=== PATIENT | female | born 1955 | race Caucasian/White ===

== ENCOUNTER → 2018-05-18 | Outpatient (CLI) | payer OTHER ==
[~2018-05-18] MED LIST: ASPIR 8181 MG PO; METOPROLOL SUCC50 MG PO
--- NOTE | 2018-05-21 09:27 | Diagnostic Imaging Report ---
TECHNIQUE: Magnetic resonance imaging of the LEFT SHOULDER was performed WITHOUT injected contrast. COMPARISON: None available. HISTORY: Left shoulder pain FINDINGS: MUSCLES AND TENDONS: Rotator Cuff: Tendons: Full thickness tear of the conjoined supraspinatus and infraspinatus at the humeral insertion measuring approximately 1 cm in AP dimension. No significant retraction. Muscles: No focal muscle atrophy. Biceps Tendon: The long head of the biceps tendon is intact and within the intertubercular groove. GLENOHUMERAL JOINT: Glenoid Labrum: No displaced tear. Articular Cartilage: No focal defect. AC JOINT AND ACROMION: Minimal hypertrophic degenerative changes of the acromioclavicular joint. Downsloping acromion with subacromial spurring. BONE: No acute fracture. SOFT TISSUES: Subacromial subdeltoid bursal fluid. IMPRESSION: Focal full-thickness tear of the conjoined supraspinatus and infraspinatus tendon at the humeral insertion. No atrophy. Downsloping acromion with subacromial spurring. Signed by: Dr. Carlos Davis M.D. on 05/21/2018 9:24 AM
== END ==
LOC: MRI 08:26
PROVIDERS: ATTEND Specialist
DX: M75.42 Impingement syndrome of left shoulder (principal)

== ENCOUNTER → 2018-07-19 | Day surgery (SDC) | payer OTHER ==
[2018-07-15 10:03] LABS: ANION GAP 14.4 mmol/L (8-16); BLOOD UREA NITROGEN 17 mg/dL (7-26); BUN/CREATININE RATIO 21 (6-25); CALCIUM 9.4 mg/dL (8.4-10.2); CARBON DIOXIDE 24 mmol/L (22-29); CHLORIDE 106 mmol/L (98-107); EST GLOMERULAR FILTRATION RATE > 60 ML/MIN (60-); GLUCOSE 99 mg/dL (74-118); POTASSIUM 4.4 mmol/L (3.5-5.1); SODIUM 140 mmol/L (136-145)
[~2018-07-19] MED LIST changes: +CALCIUM CARBON500 MG PO; +CEFAZOLIN SOD 1 GM/NS 50ML 50 ML IV ONE; +DEXAMETHASONE SOD PHOS INJ 4 MG/ML VIAL ONE; +EPHEDRINE SULFATE INJ 50 MG/10 ML SYR ONE; +EPINEPHRINE HCL 1:1000 1ML 1 MG/ML AMP ONE; +FENTANYL CITRATE/PF 100MCG/2 ML INJ ONE; +GLYCOPYRROLATE INJ 1MG/ 5 ML SYR ONE; +KETOROLAC TROMETHAMINE 30 MG/ML VIAL ONE; +LIDOCAINE HCL 2% LOCAL INJ 5 ML SDV VIAL INJ ONE; +METFORMIN HCL500 MG PO; +METOCLOPRAMIDE HCL 10 MG/2ML VIAL ONE; +MIDAZOLAM HCL 2 MG/2 ML VIAL ONE; +NEOSTIGMINE 5 MG/5ML SYR ONE; +ONDANSETRON HCL INJ 2MG/ML 2ML 2 MG/ML VIAL ONE; +PHENYLEPHRINE HCL 1% 10 MG/ML VIAL ONE; +PROPOFOL IV EMULSION 10 MG/ML 20 ML VIAL ONE; +ROCURONIUM BROMIDE 10 MG/ML 5ML VIAL ONE; +ROPIVACAINE 0.5% 5 MG/ML 30 ML SDV ONE; +SEVOFLURANE INHAL SOLN 250 ML PEN BTL ONE; +VITAMIN D1000 UNI1 PO
--- OUTSIDE RECORDS SUMMARY | 2018-07-19 06:49 | XMS REPORT | Clinical Summary ---
Author Author [facility] Address Unknown Phone Unavailable Care Team Providers Care Metal Dealer Name Role Phone PCP Unavailable Allergies No Known Allergies Medications End Date Status Medication Sig Dispensed Refills Start Date Active metFORMIN XR 0 (GLUCOPHAGE-XR) 500 mg 24 7 hr tablet Active metoprolol succinate XL 0 (TOPROL-XL) 50 mg 24 hr 7 tablet Active aspirin (ECOTRIN) 81 MG Take 81 mg by 0 enteric coated tablet mouth daily. Active calcium carbonate (TUMS) Chew 1 tablet 0 200 mg calcium (500 mg) daily. 1000 chewable tablet Active Problems No known active problems Family History Medical History Relation Name Comments Stroke Father Diabetes Mother Hypertension Mother Relation Name Status Comments Father Mother Social History Date Tobacco Use Types Packs/Day Years Used Never Smoker Smokeless Tobacco: Never Used Alcohol Use Drinks/Week oz/Week Comments No Sex Assigned at Date Recorded Not on file Industry Job Start Date Occupation Not on file Not on file Not on file Travel End Travel History Travel Start No recent travel history available. Last Filed Vital Signs Not on file Plan of Treatment Health Maintenance Due Date Last Done Comments CERVICAL CANCER SCREENING 02/06/1977 BREAST CANCER SCREENING 02/06/2006 COLON CANCER SCREENING 02/06/2006 SHINGLES VACCINES (1 of 02/06/2006 2) INFLUENZA VACCINE 12/30/2017 Results Not on fileafter 07/18/2017 Insurance Payer Benefit Subscriber ID Type Phone Address Plan / Group [facility] xxxxxxxxx HMO/PPO THCARE CHOICE/CHO ICE + Advance Directives Patient has advance care planning documents on file. For more information, timur andres contact: Roy [facility] [address] [place] [address]
--- OUTSIDE RECORDS SUMMARY | 2018-07-19 06:49 | XMS REPORT ---
Author Author [facility] Address Unknown Phone Unavailable Care Team Providers Care Profile Shaper Operator Name Role Phone KATIE FELICIANO Unavailable Unavailable Problems This patient has no known problems. Allergies, Adverse Reactions, Alerts This patient has no known allergies or adverse reactions. Medications This patient has no known medications. Results Test Description Test Time Test Comments Text Results Atomic Results Result Comments MRI SHOULDER LEFT WO 2018-05-21 09:21:00 [place] [address] Patient Name: KESHIA PARDO MR #: [id number] : 1955 Age/Sex: 63/F Req #: [id number] [facility] Physician: Ordered by: KATIE FELICIANO MD Report #: [id number] Location: MRI Room/Bed: Procedure: [id number] MRI/MRI SHOULDER LEFT WO Exam Date: 05/18/18 Exam Time: 914 REPORT STATUS: Signed TECHNIQUE: Magnetic resonance imaging of the LEFT SHOULDER was performed WITHOUT injected contrast. COMPARISON: None available. HISTORY: Left shoulder pain FINDINGS: MUSCLES AND TENDONS: Rotator Cuff: Tendons: Full thickness tear of the conjoined supraspinatus and infraspinatus at the humeral insertion measuring approximately 1 cm in AP dimension. No significant retraction. Muscles: No focal muscle atrophy. Biceps Tendon: The long head of the biceps tendon is intact and within the intertubercular groove. GLENOHUMERAL JOINT: Glenoid Labrum: No displaced tear. Articular Cartilage: No focal defect. AC JOINT AND ACROMION: Minimal hypertrophic degenerative changes of the acromioclavicular joint. Downsloping acromion with subacromial spurring. BONE: No acute fracture. SOFT TISSUES: Subacromial subdeltoid bursal fluid. IMPRESSION: Focal full-thickness tear of the conjoined supraspinatus and infraspinatus tendon at the humeral insertion. No atrophy. Downsloping acromion with subacromial spurring. Signed by: Dr. Pranav Hsieh M.D. on 05/21/2018 9:24 AM Dictated By: PRANAV HSIEH MD 3 Transcribed By: JACEK on 05/21/18923 COPY TO: KATIE FELICIANO MD SCR MAMM BILATERAL ROGELIO CAD DIGITAL 2018-03-31 08:43:38 - SCR MAMM BILATERAL ROGELIO CAD DIGITALBILATERAL DIGITAL SCREENING MAMMOGRAM 3D/2D WITH CAD: 03/16/2018CLINICAL: Asymptomatic. Digital breast tomosynthesis was performed in addition to routine CC and MLO views. Current mammographic images were evaluated by either a Etaphase M-Vu or a [employer] ImageHost Committeeer CAD (computer aided detection system). Comparison is made to exams dated 03/04/2017 mammogram, 12/31 mammogram, 01/22/2015 mammogram, and 12/13/2013 mammogram - [facility]. The tissue of both breasts is heterogeneously dense. This may lower the sensitivity of mammography. There are benign calcifications in both breasts. No suspicious mass, architectural distortion, malignant type calcification, or lymph node abnormality detected. Breast architecture is stable compared to prior exams.IMPRESSION: BENIGNThere is no mammographic evidence of malignancy. Resume annual screening mammography in one year. Sky Becker M.D. ss/pensusanna:03/31/2018 08:43:38 Imaging Technolo gist: Elizabeth Solano FW, [facility]-FWletter sent: BIRADS 1-2 Normal Mammogram BI-RADS: 2 Benign SCR MAMM BILATERAL ROGELIO CAD DIGITAL 2018-03-31 08:43:38 - SCR MAMM BILATERAL ROGELIO CAD DIGITALBILATERAL DIGITAL SCREENING MAMMOGRAM 3D/2D WITH CAD: 03/16/2018CLINICAL: Asymptomatic. Digital breast tomosynthesis was performed in addition to routine CC and MLO views. Current mammographic images were evaluated by either a Etaphase M-Vu or a [employer] ImageChecker CAD (computer aided detection system). Comparison is made to exams dated 03/04/2017 mammogram, 12/31 mammogram, 01/22/2015 mammogram, and 12/13/2013 mammogram - [facility]. The tissue of both breasts is heterogeneously dense. This may lower the sensitivity of mammography. There are benign calcifications in both breasts. No suspicious mass, architectural distortion, malignant type calcification, or lymph node abnormality detected. Breast architecture is stable compared to prior exams.IMPRESSION: BENIGNThere is no mammographic evidence of malignancy. Resume annual screening mammography in one year. Sky Becker M.D. ss/penrad:03/31/2018 08:43:38 Imaging Technolo gist: Elizabeth Solano FW, [facility]-FWletter sent: BIRADS 1-2 Normal Mammogram BI-RADS: 2 Benign
[2018-07-19 12:15] VITALS: BP 134/66
--- NOTE | 2018-07-20 13:41 | Operative Report ---
DATE OF PROCEDURE: 07/19/2018 YOUTH LEADER: Zack Nickerson PA-C PREOPERATIVE DIAGNOSIS: Left shoulder rotator cuff tear. POSTOPERATIVE DIAGNOSIS: Left shoulder rotator cuff tear. PROCEDURE: Left shoulder arthroscopy, subacromial decompression, and rotator cuff repair. INDICATIONS: The patient is a 63-year-old lady, who has a long history of left shoulder pain. Clinic exam and MRI findings were consistent with a tear of the rotator cuff. She has been treated with extensive conservative management. Recently, her symptoms have been becoming worse and her range of motion has diminished. She states she would now like to proceed with definitive intervention. The risks and benefits of the procedure have been discussed. She states she understands and wishes to proceed. DESCRIPTION OF PROCEDURE: The patient was brought to the operating room and placed under general anesthetic. She received a regional block and prophylactic antibiotics in the holding area. She was positioned in the beach chair position on the shoulder table. Her left upper extremity was prepped and draped in a sterile manner. A preoperative time out was performed. Prior to prepping, I did examine her shoulder. She had some secondary adhesive capsulitis. A gentle manipulation was performed and there was palpable release of the anterior capsule. Standard posterior arthroscopy portal was established. The shoulder was infiltrated with sterile saline and systematically inspected. It was noted that the shoulder did not fully distend, which was consistent with a rotator cuff tear. The glenohumeral surfaces were well preserved. There were some mild grade 1 changes with chondromalacia. There was some fraying of the superior labrum. The biceps tendon was unremarkable. The tendon attachment at the superior glenoid tubercle appeared stable. The rotator cuff was inspected. There was a tear of the supraspinatus. A needle was placed from the lateral soft tissue into the joint to localize the tear. The scope was then placed into the subacromial space. A fairly aggressive subacromial bursectomy was necessary to visualize the tear. A bony decompression was performed of the anterior inferior acromion. She had no symptoms of the acromioclavicular joint and so this was left alone. The rotator cuff was debrided back to more healthy tissue through a lateral working portal. The greater tuberosity was gently decorticated. The tear measured approximately 1.5 cm. I elected to use a single suture anchor preloaded with FiberTape. These were passed individually through healthy portions of the rotator cuff. These were then anchored down to the superior lateral humeral cortex with a secondary suture anchor. The repair was probed and noticed to be under appropriate tension. The arthroscopic instruments were then removed. The portal incisions were closed with nylon stitches. A sterile bandage was applied. The patient was extubated and transported to the recovery room in stable condition. Blood loss was less than 20 mL. All needle and sponge counts were correct. Walter Lira MD DR/NAVI /[id number]
== END | disposition home or self-care (01) ==
LOC: OR 06:47
PROVIDERS: ATTEND Specialist
DX: S46.022D Laceration of muscle(s) and tendon(s) of the rotator cuff of left shoulder, subsequent encounter (principal); I10 Essential (primary) hypertension; E11.9 Type 2 diabetes mellitus without complications; Z79.84 Long term (current) use of oral hypoglycemic drugs; Z79.82 Long term (current) use of aspirin; Z01.812 Encounter for preprocedural laboratory examination
CPT/HCPCS: 29826; 29827; 36415 ×2; 80048; 82948; 93005; C1713 ×3; J0171; J0690; J1100; J1885; J2001; J2250; J2370; J2405; J2704; J2765; J2795; J3490

== ENCOUNTER → 2023-03-31 | Day surgery (SDC) | payer OTHER ==
[~2023-03-31] MED LIST changes: +BENICAR20 MG PO; -CEFAZOLIN SOD 1 GM/NS 50ML 50 ML IV ONE; +CYCLOPENTOLATE HCL 1% OPTH SOLN 2ML BTL ONE; -DEXAMETHASONE SOD PHOS INJ 4 MG/ML VIAL ONE; -EPHEDRINE SULFATE INJ 50 MG/10 ML SYR ONE; -EPINEPHRINE HCL 1:1000 1ML 1 MG/ML AMP ONE; -GLYCOPYRROLATE INJ 1MG/ 5 ML SYR ONE; -KETOROLAC TROMETHAMINE 30 MG/ML VIAL ONE; +LACTATED RINGER'S 1,000 ML ONE; -LIDOCAINE HCL 2% LOCAL INJ 5 ML SDV VIAL INJ ONE; -METOCLOPRAMIDE HCL 10 MG/2ML VIAL ONE; +MOXIFLOXACIN HCL(OPTH) 3 ML BTL ONE; -NEOSTIGMINE 5 MG/5ML SYR ONE; -ONDANSETRON HCL INJ 2MG/ML 2ML 2 MG/ML VIAL ONE; +OR PHACO EYE KIT ONE; -PHENYLEPHRINE HCL 1% 10 MG/ML VIAL ONE; +PHENYLEPHRINE HCL 10% 5 ML OPTH SOLN ONE; +PREOP PHACO EYE KIT ONE; -PROPOFOL IV EMULSION 10 MG/ML 20 ML VIAL ONE; -ROCURONIUM BROMIDE 10 MG/ML 5ML VIAL ONE; -ROPIVACAINE 0.5% 5 MG/ML 30 ML SDV ONE; -SEVOFLURANE INHAL SOLN 250 ML PEN BTL ONE; +TROPICAMIDE 1% OPTH SOLN 15 ML BTL ONE
[2023-03-31 10:36] VITALS: BP 136/71; PULSE 74; RESP 18; O2SAT 98
== END | disposition home or self-care (01) ==
LOC: OR 07:52
PROVIDERS: ATTEND Ophthalmology
DX: H52.4 Presbyopia (principal); I10 Essential (primary) hypertension; Z79.82 Long term (current) use of aspirin; Z79.899 Other long term (current) drug therapy
CPT/HCPCS: 66984; J2250; J3010; J7121; V2632